=== PATIENT | female | born 1950 | race Caucasian/White ===

== ENCOUNTER 2019-09-15 08:25 | Inpatient (IN) | payer MEDICARE, MEDICAID ==
[2019-09-15] VITALS (22 sets, daily range): BP systolic 109–177; BP diastolic 54–89
[~2019-09-15] VITALS: Ht 181.6 cm; Wt 145.2 kg
[~2019-09-15 08:25] MED LIST: ALLO300T2 PO; ASPI-611 PO; BUPIVAcaine/PF 2.5 mg/ml (0.25%) 30ml vial ONE; CALC-793 PO; DOCUMENT DATE & TIME OF BETA-BLOCKER PO ONE; DOXA4TAB43 PO; DULA1.5P SUBCUT; DULO40CA2 PO; FLUD0.1T PO; FURO-150 PO; GENTAMICIN IV ONE; HYDR12.55 PO; INSU100C4 SQ; INSU200I4 SUBCUT; LEVO75TA7 PO; LORA-512 PO; LOSA100T57 PO; METO50TA7 PO; MONT10TA26 PO; MULTIMINERALS PO; NORMAL SALINE IV ONE; POTA20TA19 PO; SALM1CAP4 PO; TURM1POW PO; VITA1TAB20 PO; VITC500T PO; [UNRECOGNIZED DRUG - CODE] PO; [UNRECOGNIZED DRUG - CODE] PO; [UNRECOGNIZED DRUG - CODE] PO; clindamycin-Cleocin 900mg/D5W 50 ML IV ONE; famotidine 20mg tablet PO ONE; ringers solution, lacted 1,000 ML IV SCH
[2019-09-15] MEDS ORDERED: ringers solution, lacted 1,000 ML IV SCH ×2 (09:26→23:35)
[2019-09-15] MEDS ORDERED: morphine 2 MG/ML inj. syringe IV PRN (09:30)
[2019-09-15] MEDS ORDERED: hydrALAZINE 20mg/ml inj. IV PRN (09:30)
[2019-09-15] MEDS ORDERED: ondansetron/PF 4mg/2ml inj IV PRN ×2 (09:30→12:30)
[2019-09-15] MEDS ORDERED: fentaNYL/PF 50MCG/1 ML 2ML syringe IV PRN ×2 (09:30)
[2019-09-15] MEDS ORDERED: labetalol 20mg/4ml (5mg/ml) syringe IV PRN (09:30)
[2019-09-15] MEDS ORDERED: morphine 4 MG/ML inj SYRINge IV PRN (09:30)
[2019-09-15 10:16] LABS: BASOPHILS % (AUTO) 0.4 % (0-1); EOSINOPHILS # (AUTO) 0.2 X10'3 (0-0.9); EOSINOPHILS % (AUTO) 1.9 % (0-6); LYMPHOCYTES # (AUTO) 1.9 X10'3 (1.1-4.8); LYMPHOCYTES % (AUTO) 17.9 % (21-51); MEAN CORPUSCULAR HEMOGLOBIN 25.5 PG (27.0-31.0); MEAN CORPUSCULAR HGB CONC 32.1 g/dL (33.0-36.5); MEAN CORPUSCULAR VOLUME 79.5 FL (78-98); MEAN PLATELET VOLUME 6.7 FL (7.4-10.4); MONOCYTES # (AUTO) 0.5 X10'3 (0-0.9); NEUTROPHILS # (AUTO) 7.8 X10'3 (1.8-7.7); NEUTROPHILS % (AUTO) 74.8 % (42-75); PRE OP PLATELET COUNT 403 X10'3 (140-440); RED BLOOD COUNT 4.02 X10'6 (4.20-5.60); RED CELL DISTRIBUTION WIDTH 16.8 % (11.5-14.5)
[2019-09-15 10:19] LABS: PRE OP HEMOGLOBIN 10.3 g/dL (12.0-16.0)
[2019-09-15 10:28] LABS: PRE OP PARTIAL THROMB. TIME 26 SECONDS (22-32)
[2019-09-15 10:32] LABS: ALBUMIN 3.5 G/DL (3.4-5.0); ALBUMIN/GLOBULIN RATIO 0.8 (1.1-1.5); ALKALINE PHOSPHATASE 102 IU/L (46-116); BLOOD UREA NITROGEN 15 MG/DL (7-18); BUN/CREATININE RATIO 10.1 (6.6-38.0); CALCIUM 9.8 MG/DL (8.5-10.1); CHLORIDE 106 MMOL/L (99-107); CREATININE 1.49 MG/DL (0.40-0.90); PRE OP ALT 17 U/L (30-65); PRE OP ANION GAP 11 (8-16); PRE OP AST 19 U/L (10-37); PRE OP BILIRUB, TOTAL 0.5 MG/DL (0.0-1.0); PRE OP GLUCOSE 98 MG/DL (70-104); PRE OP SODIUM 144 MMOL/L (135-145); TOTAL CARBON DIOXIDE 27.4 MMOL/L (24-32); TOTAL PROTEIN 7.9 G/DL (6.4-8.2); eGFR 35 ML/MIN
[2019-09-15] MEDS ORDERED: etomidate 2mg/ml inj. ONE ×2 (10:40→10:45)
[2019-09-15] MEDS ORDERED: sevoflurane 250ml liquid IH ONE (10:40)
[2019-09-15 10:44] LABS: PRE OP POTASSIUM 3.3 MMOL/L (3.4-5.1)
[2019-09-15] MEDS ORDERED: midazolam 2 mg/2 ml injection ONE (10:44)
[2019-09-15] MEDS ORDERED: fentaNYL/PF 50MCG/1 ML 2ML syringe ONE ×2 (10:44→12:06)
[2019-09-15] MEDS ORDERED: dexamethasone sod phosphate 4mg/ml inj. ONE (10:45)
[2019-09-15] MEDS ORDERED: rocuronium 10mg/ml inj IV ONE ×2 (10:45→11:41)
[2019-09-15] MEDS ORDERED: albumin (Human) 5% 250ml 250 ML IV ONE ×2 (10:45→10:56)
[2019-09-15] MEDS ORDERED: ondansetron/PF 4mg/2ml inj ONE (10:45)
[2019-09-15] MEDS ORDERED: atropine 0.4 mg/ml 20ml vial ONE (11:36)
[2019-09-15] MEDS ORDERED: neostigmine methylsulfate 1 MG/ML 10ml vial ONE (11:41)
[2019-09-15] MEDS ORDERED: glycopyrrolate 0.2mg/ml inj ONE (11:41)
[2019-09-15] MEDS ORDERED: acetaminophen 1,000mg/100ml IV 100 ML IV ONE (11:42)
[2019-09-15] MEDS ORDERED: BUPIVAcaine/PF 2.5 mg/ml (0.25%) 30ml vial ONE (12:14)
[2019-09-15] MEDS ORDERED: labetalol 20mg/4ml (5mg/ml) syringe IV ONE (12:16)
[2019-09-15] MEDS ORDERED: naloxone 0.4 mg/ml inj IV PRN (12:30)
[2019-09-15] MEDS ORDERED: MESSAGE TO PHARMACY PO ONE (12:30)
[2019-09-15] MEDS ORDERED: CADD PCA waste documentation MC PRN (12:30)
[2019-09-15] MEDS ORDERED: dextrose ORAL solution 15 GM/59 ML bottle PO PRN ×2 (12:30)
[2019-09-15] MEDS ORDERED: dextrose 50%-water 50ml dispensing syringe IV PRN ×2 (12:30)
[2019-09-15] MEDS ORDERED: glucagon, human recombinant 1mg kit SUBCUT PRN (12:30)
--- NOTE | 2019-09-15 12:32 | NUR ---
Received from OR via , accompanied by Anesthesiologist dr valdez and report given by Anesthesiolgist. AWAKENS EASILY, VSS, ABD ISLAND DSG C/D/I. ABD SOFT/NONDISTENDED. NO C/O PAIN. SCDS ON. BRIGGS CATH SECURCED WITH CLEAR YELLOW DRAINAGE PRESENT.
--- NOTE | 2019-09-15 13:20 | NUR ---
2 EPISODES ON BRADYCARDIA TO MID 30'S LASTING APPROXIMATELY 1 MINUTE EACH. PULSE RESUMED TO SR IN THE MID 60'S. DR BRAY NORIFIED AND TELE MONITORING ORDERED FOR THE FLOOR
[2019-09-15] MEDS: HYDROmorphone/NS 1 mg/ml CADD 50 ML IV SCH ×6 (13:28→23:00)
--- NOTE | 2019-09-15 14:22 | NUR ---
VSS, PT STATES ADEQUATE PAIN RELIEF. ADB DSG C/D/I, ABD SOFT AND NONDISTENDED. IV PATENT LEFT FA #20. DILAUDID CADD IN USE. REPORT GIVEN TO FIFI NAVARRETE ON SURG, PT TRANSPORTED WITH TELE TO 344A. BELONGINGS SENT WITH PT
--- NOTE | 2019-09-15 14:40 | NUR ---
Received patient to room 344A via bed accompanied by x2 staff. Patient is drowsy but easily awakens to voice. Pain managed with Dilaudid cadd. Educated patient use of CADD. Oriented patient to room, call light placed within reach and bed is low and locked.
[2019-09-15 16:02] LABS: HEMOGLOBIN A1C 7.1 % (4.5-6.2)
[2019-09-15] MEDS ORDERED: enoxaparin 100mg/ml syringe SUBCUT ONE (16:40)
--- NOTE | 2019-09-15 17:30 | NUR ---
CALLED TO DR GIL TO CLARIFY POST OP PROPHYLAXIS CONTRAINDICATION: BLEEDING ORDER HOWEVER THERE WAS LOVENOX ORDERED FOR PATIENT. DR GIL STATED PATIENT DOES NEED LOVENOX POST OP AND TO NOTIFY PHARMACIST IT IS FOR WEIGHT BASED. CALLED AND SPOKE TO PHARMACISTGAMALIEL.
[2019-09-15 17:31] LABS: HEMATOCRIT 31.6 % (35.0-45.0); HEMOGLOBIN 9.9 g/dl (12.0-16.0); MEAN CORPUSCULAR HGB CONC 31.5 g/dL (33.0-36.5); MEAN CORPUSCULAR VOLUME 79.4 FL (78-98); MEAN PLATELET VOLUME 6.7 FL (7.4-10.4); PLATELET COUNT 369 X10'3 (140-440); RED BLOOD COUNT 3.98 X10'6 (4.20-5.60); WHITE BLOOD COUNT 18.8 X10'3 (4.5-11.0)
[2019-09-15 17:40] LABS: BLOOD UREA NITROGEN 12 MG/DL (7-18); CREATININE 1.29 MG/DL (0.40-0.90); eGFR 41 ML/MIN
--- NOTE | 2019-09-15 18:55 | NUR ---
Problems reprioritized. Patient report given, questions answered & plan of care reviewed with Raysa RN.
[2019-09-15] MEDS: insulin glargine (Lantus) pen - multi-dose SQ SCH (22:11)
[2019-09-15] MEDS: metoprolol succinate 25mg (24-HOUR) SR. Tablet PO SCH (23:46)
[2019-09-16] VITALS (7 sets, daily range): BP systolic 109–147; BP diastolic 54–70
[2019-09-16] MEDS: RINGERS IV SCH ×3 (00:28→21:15)
[2019-09-16] MEDS: POTASSIUM ACETATE IV SCH ×3 (00:28→21:15)
[2019-09-16] MEDS: LACTED IV SCH ×3 (00:28→21:15)
[2019-09-16] MEDS: HYDROmorphone/NS 1 mg/ml CADD 50 ML IV SCH ×12 (00:57→23:00)
[2019-09-16 04:56] LABS: BASOPHILS % (AUTO) 0.1 % (0-1); EOSINOPHILS % (AUTO) 0 % (0-6); HEMATOCRIT 27.1 % (35.0-45.0); HEMOGLOBIN 8.7 g/dl (12.0-16.0); LYMPHOCYTES # (AUTO) 1.3 X10'3 (1.1-4.8); LYMPHOCYTES % (AUTO) 9.1 % (21-51); MEAN CORPUSCULAR HEMOGLOBIN 25.6 PG (27.0-31.0); MEAN CORPUSCULAR HGB CONC 32.3 g/dL (33.0-36.5); MEAN CORPUSCULAR VOLUME 79.1 FL (78-98); MEAN PLATELET VOLUME 6.9 FL (7.4-10.4); MONOCYTES # (AUTO) 0.8 X10'3 (0-0.9); MONOCYTES % (AUTO) 5.2 % (2-12); NEUTROPHILS # (AUTO) 12.4 X10'3 (1.8-7.7); NEUTROPHILS % (AUTO) 85.6 % (42-75); PLATELET COUNT 344 X10'3 (140-440); RED BLOOD COUNT 3.42 X10'6 (4.20-5.60); RED CELL DISTRIBUTION WIDTH 16.9 % (11.5-14.5); WHITE BLOOD COUNT 14.5 X10'3 (4.5-11.0)
--- NOTE | 2019-09-16 06:40 | NUR ---
Patient in room HOME 344. I have received report from ROSALBA CARDOSO and had the opportunity to ask questions and assume patient care.
[2019-09-16] MEDS: enoxaparin 40mg/0.4ml syringe SQ SCH (07:10)
[2019-09-16] MEDS: insulin Lispro (HumaLOG) vial - multi-dose SQ SCH ×2 (08:37→14:21)
--- NOTE | 2019-09-16 12:10 | NUR ---
RECIEVED PATIENT FROM STUDENT ROSE MARIE AND PATIENT IS IN RESTING ON BEDSIDE
--- NOTE | 2019-09-16 14:38 | NUR ---
Student documentation: I have reviewed all interventions, assessments performed and documented by Pierre RAHMAN.
--- NOTE | 2019-09-16 15:07 | NUR ---
Pt with A1c 7.1 seen at bedside. Pt reports she previously had to take steroid shots and her A1c was above 9.0 however A1c was down to 6.6 in August; No A1c hx in EMR. Pt states she checks her BG levels and takes her DM medications "mostly" per rx. Pt states she is unsure of how to dose her short acting insulin when her blood sugars are in the lower range so instead of guessing she just doesn't take it. Pt reports she was to have an appointment with her MD today however will be scheduling a new appointment d/t being in the hospital. Pt provided with written and verbal DM education with referral to outpatient DM class. Pt admitted for ascending colon resection with hx ascending colon cancer. Pt s/p resection 09/15. Pt provided with written and verbal low fiber nutrition therapy education with a list of fiber content in food. Pt reports she has already been doing research on her own about diet after surgery and is aware that a low fiber diet is appropriate while healing. All of patient's questions were answered at this time. RD contact information provided. Pt reports difficulty chewing d/t missing teeth however denies texture modification with diet advancement. Will continue to follow. Addendum: 09/16/19 at [address] Amended: Links added.
[2019-09-16] MEDS ORDERED: MULT-1085 PO (18:51)
--- NOTE | 2019-09-16 18:54 | NUR ---
Problems reprioritized. Patient report given, questions answered & plan of care reviewed with MOSES Mackey RN AND ROSALBA ORELLANA.
[2019-09-16] MEDS: metoprolol succinate 25mg (24-HOUR) SR. Tablet PO SCH (21:10)
[2019-09-16] MEDS: insulin glargine (Lantus) pen - multi-dose SQ SCH (21:10)
[2019-09-16] MEDS ORDERED: Potassium Cl inj 20 MEQ in ringers solution, lacted 1,000 ML IV SCH (23:09)
[2019-09-17] VITALS: BP 146/83
[2019-09-17] MEDS: HYDROmorphone/NS 1 mg/ml CADD 50 ML IV SCH ×3 (01:00→05:00)
[2019-09-17 04:50] LABS: BASOPHILS % (AUTO) 0.3 % (0-1); EOSINOPHILS # (AUTO) 0.2 X10'3 (0-0.9); EOSINOPHILS % (AUTO) 2.1 % (0-6); HEMATOCRIT 26.2 % (35.0-45.0); HEMOGLOBIN 8.4 g/dl (12.0-16.0); LYMPHOCYTES # (AUTO) 2.2 X10'3 (1.1-4.8); LYMPHOCYTES % (AUTO) 24.7 % (21-51); MEAN CORPUSCULAR HEMOGLOBIN 25.2 PG (27.0-31.0); MEAN CORPUSCULAR HGB CONC 31.9 g/dL (33.0-36.5); MEAN CORPUSCULAR VOLUME 79.2 FL (78-98); MEAN PLATELET VOLUME 6.9 FL (7.4-10.4); MONOCYTES # (AUTO) 0.6 X10'3 (0-0.9); MONOCYTES % (AUTO) 6.4 % (2-12); NEUTROPHILS # (AUTO) 5.9 X10'3 (1.8-7.7); NEUTROPHILS % (AUTO) 66.5 % (42-75); PLATELET COUNT 340 X10'3 (140-440); RED BLOOD COUNT 3.31 X10'6 (4.20-5.60); RED CELL DISTRIBUTION WIDTH 16.6 % (11.5-14.5); WHITE BLOOD COUNT 8.9 X10'3 (4.5-11.0)
--- NOTE | 2019-09-17 05:49 | NUR ---
Dr. Kuhn at bedside. Patient had BM. Advance diet to carb control. Wean from CADD and start Pecocet PO. Patient requested to stay another as she is one hour away from [facility]. Dr. Kuhn agreed.
[2019-09-17] MEDS ORDERED: oxyCODONE/APAP 5-325mg tablet PO PRN (05:50)
[2019-09-17] MEDS ORDERED: oxyCODONE/APAP 5-325mg tablet PO ONE (05:50)
[2019-09-17] MEDS ORDERED: diphenhydrAMINE 25mg capsule PO PRN (05:50)
[2019-09-17] MEDS: oxyCODONE/APAP 5-325mg tablet PO PRN ×4 (06:30→23:06)
[2019-09-17] MEDS: Potassium Cl inj 20 MEQ in ringers solution, lacted 1,000 ML IV SCH ×2 (06:30→16:45)
--- NOTE | 2019-09-17 06:39 | NUR ---
Problems reprioritized. Patient report given, questions answered & plan of care reviewed with Rosie NAVARRETE.
[2019-09-17 08:00] VITALS: BP 154/61
[2019-09-17] MEDS: enoxaparin 40mg/0.4ml syringe SQ SCH (08:03)
[2019-09-17 11:00] VITALS: BP 146/55
--- NOTE | 2019-09-17 15:43 | NUR ---
DURING ADMISSION ASSESSMENT PT STATES TO [facility] STUDENT THAT SHE IS NOT A FULL CODE, HER CODE STATUS IS A DNR. DR GERMAIN NOTIFIED. HE HAS CALLED BACK AND WILL COME SPEAK TO PATIENT ABOUT THIS SO WE CAN MAKE HER CODE STATUS WHAT SHE PREFERS.
[2019-09-17 19:00] VITALS: BP 183/79
[2019-09-17] MEDS: insulin Lispro (HumaLOG) vial - multi-dose SQ SCH (19:38)
[2019-09-17] MEDS: metoprolol succinate 25mg (24-HOUR) SR. Tablet PO SCH (21:03)
[2019-09-17] MEDS: insulin glargine (Lantus) pen - multi-dose SQ SCH (21:05)
[2019-09-18] VITALS: BP 144/76
[2019-09-18] MEDS: Potassium Cl inj 20 MEQ in ringers solution, lacted 1,000 ML IV SCH ×2 (02:47→13:53)
[2019-09-18 05:22] LABS: BASOPHILS % (AUTO) 0.3 % (0-1); EOSINOPHILS # (AUTO) 0.3 X10'3 (0-0.9); HEMATOCRIT 28.6 % (35.0-45.0); HEMOGLOBIN 9.2 g/dl (12.0-16.0); LYMPHOCYTES # (AUTO) 2.1 X10'3 (1.1-4.8); LYMPHOCYTES % (AUTO) 24.4 % (21-51); MEAN CORPUSCULAR HEMOGLOBIN 25.3 PG (27.0-31.0); MEAN CORPUSCULAR HGB CONC 32.1 g/dL (33.0-36.5); MEAN CORPUSCULAR VOLUME 78.9 FL (78-98); MONOCYTES # (AUTO) 0.5 X10'3 (0-0.9); MONOCYTES % (AUTO) 6.2 % (2-12); NEUTROPHILS # (AUTO) 5.5 X10'3 (1.8-7.7); NEUTROPHILS % (AUTO) 65.1 % (42-75); PLATELET COUNT 369 X10'3 (140-440); RED BLOOD COUNT 3.62 X10'6 (4.20-5.60); RED CELL DISTRIBUTION WIDTH 16.6 % (11.5-14.5); WHITE BLOOD COUNT 8.4 X10'3 (4.5-11.0)
--- NOTE | 2019-09-18 06:38 | NUR ---
Problems reprioritized. Patient report given, questions answered & plan of care reviewed with ROSALBA VILLEGAS.
--- NOTE | 2019-09-18 06:56 | NUR ---
Patient in room HOME 344. I have received report from Aleah NAVARRETE and had the opportunity to ask questions and assume patient care.
[2019-09-18 07:00] VITALS: BP 145/77
[2019-09-18] MEDS: insulin Lispro (HumaLOG) vial - multi-dose SQ SCH ×3 (08:42→19:34)
[2019-09-18] MEDS: enoxaparin 40mg/0.4ml syringe SQ SCH (08:43)
[2019-09-18] MEDS: oxyCODONE/APAP 5-325mg tablet PO PRN ×2 (09:55→19:30)
[2019-09-18 12:00] VITALS: BP 137/71
[2019-09-18 18:00] VITALS: BP 175/72
--- NOTE | 2019-09-18 18:11 | NUR ---
Problems reprioritized. Patient report given, questions answered & plan of care reviewed with Hanna Enrique RN.
--- NOTE | 2019-09-18 18:53 | NUR ---
Patient in room HOME 344. I have received report from ROSALBA SYKES and had the opportunity to ask questions and assume patient care. Addendum: 09/18/19 at 1854 by Aleah Lazcano RN Amended: Links added.
[2019-09-18] MEDS: metoprolol succinate 25mg (24-HOUR) SR. Tablet PO SCH (21:37)
[2019-09-18] MEDS: insulin glargine (Lantus) pen - multi-dose SQ SCH (21:40)
[2019-09-19] VITALS: BP 132/57
--- NOTE | 2019-09-19 06:23 | NUR ---
Problems reprioritized. Patient report given, questions answered & plan of care reviewed with ROSALBA Cardenas. Addendum: 09/19/19 at 0623 by Aleah Lazcano RN Amended: Links added.
[2019-09-19 06:25] LABS: BASOPHILS % (AUTO) 0.3 % (0-1); EOSINOPHILS # (AUTO) 0.3 X10'3 (0-0.9); LYMPHOCYTES # (AUTO) 1.7 X10'3 (1.1-4.8); LYMPHOCYTES % (AUTO) 20.1 % (21-51); MEAN CORPUSCULAR HEMOGLOBIN 25.5 PG (27.0-31.0); MEAN CORPUSCULAR HGB CONC 32.1 g/dL (33.0-36.5); MEAN CORPUSCULAR VOLUME 79.4 FL (78-98); MEAN PLATELET VOLUME 7.2 FL (7.4-10.4); MONOCYTES # (AUTO) 0.5 X10'3 (0-0.9); MONOCYTES % (AUTO) 5.7 % (2-12); NEUTROPHILS # (AUTO) 5.8 X10'3 (1.8-7.7); NEUTROPHILS % (AUTO) 69.9 % (42-75); PLATELET COUNT 355 X10'3 (140-440); RED BLOOD COUNT 3.53 X10'6 (4.20-5.60); RED CELL DISTRIBUTION WIDTH 16.8 % (11.5-14.5); WHITE BLOOD COUNT 8.4 X10'3 (4.5-11.0)
--- NOTE | 2019-09-19 06:27 | NUR ---
Patient in room HOME 344. I have received report from ROSALBA Santiago and had the opportunity to ask questions and assume patient care.
[2019-09-19 07:00] VITALS: BP 165/72
[2019-09-19] MEDS: enoxaparin 40mg/0.4ml syringe SQ SCH (08:35)
[2019-09-19] MEDS ORDERED: PER5325T PO (08:36)
[2019-09-19] MEDS: insulin Lispro (HumaLOG) vial - multi-dose SQ SCH (08:39)
[2019-09-19] MEDS: oxyCODONE/APAP 5-325mg tablet PO PRN (10:36)
[2019-09-19 11:00] VITALS: BP 154/74
--- NOTE | 2019-09-19 11:42 | NUR ---
Patient discharged home via son and taken from unit via wheelchair with x1 staff. Patient alert, oriented and in no apparent distress at time of discharge. PIV removed with cannula intact. Patient took all belongings with her including her walker from home and her discharge instructions. Patient stated in understanding of discharge instructions and was given time for questions and answers. Patient was waiting for her son to come and give her a ride. He was coming from [place] which is way the discharge took a few hours. Patient stated she would check blood sugar at home and did not need us to check prior to discharge. Pain medication was prescribed by Dr. Kuhn through his office, and called into [facility] in [place]. [facility] was called to confirm that they received this, they stated they were but they were waiting on a diagnosis code. This diagnosis code was obtained from the ED and called into [facility]. [facility] pharmacy confirmed that they can now fill the medication. Patient was given the number for both our unit and Dr. Kuhn's office incase of any issues.
--- NOTE | 2019-09-19 11:50 | NUR ---
Patient was discharged. Her son picked her up. She left med/surg floor via wheeled down in a wheelchair with her son and one staff member. Her IV cannula was removed and was intact. Patient was given discharge instruction, educated on medication, educated on care for surgical incisions, and to follow up with her provider. She will be going home with her son, in [place], [place].
== END 2019-09-19 11:40 | disposition home or self-care (01) | DRG 330 ==
LOC: PAS IN 08:25 → EDSTATUS 11:15 → SUR 3N 12:29
PROVIDERS: ADMIT Surgery; ATTEND Surgery
PROC: 0DBK4ZZ Excision of Ascending Colon, Percutaneous Endoscopic Approach (ICD-10-PCS; principal; 2019-09-16)
PROC: 5A09357 Assistance with Respiratory Ventilation, Less than 24 Consecutive Hours, Continuous Positive Airway Pressure (ICD-10-PCS; 2019-09-17)
PROC: 5A09357 Assistance with Respiratory Ventilation, Less than 24 Consecutive Hours, Continuous Positive Airway Pressure (ICD-10-PCS; 2019-09-18)
DX: C18.2 Malignant neoplasm of ascending colon (principal); Z68.41 Body mass index [BMI] 40.0-44.9, adult; E66.01 Morbid (severe) obesity due to excess calories; Z96.651 Presence of right artificial knee joint; E11.22 Type 2 diabetes mellitus with diabetic chronic kidney disease; G47.30 Sleep apnea, unspecified; I25.10 Atherosclerotic heart disease of native coronary artery without angina pectoris; M19.90 Unspecified osteoarthritis, unspecified site; Z79.4 Long term (current) use of insulin; Z79.899 Other long term (current) drug therapy; Z80.0 Family history of malignant neoplasm of digestive organs; Z90.710 Acquired absence of both cervix and uterus; Z88.0 Allergy status to penicillin; Z88.5 Allergy status to narcotic agent
CPT/HCPCS: 36415; 80053; 82565; 82948; 83036; 84520; 85025; 85027; 85610; 85730; 86885; 86900; 86901; 93005; A4618; A7000; C1758; G0378; J0131; J0461; J1100; J1170; J1580; J1650; J1815; J2250; J2405; J2710; J3010; J3480; J3490; J7120; P9045